=== PATIENT | male | born 2000 | race Caucasian/White ===

== ENCOUNTER 2024-12-21 18:50 | Emergency (ER) | payer OTHER ==
[~2024-12-21] VITALS: Ht 177.8 cm; Wt 90.7 kg
[2024-12-21 18:55] VITALS: TEMP 97.4
[2024-12-21 21:20] VITALS: BP 143/78; O2SAT 97
== END 2024-12-21 21:22 | disposition home or self-care (01) ==
LOC: M ED 18:50
DX: S83.411A Sprain of medial collateral ligament of right knee, initial encounter (principal); X50.1XXA Overexertion from prolonged static or awkward postures, initial encounter; Y92.9 Unspecified place or not applicable; Y93.23 Activity, snow (alpine) (downhill) skiing, snowboarding, sledding, tobogganing and snow tubing; Y99.9 Unspecified external cause status